=== PATIENT | male | born 1995 | race Caucasian/White ===

== ENCOUNTER 2025-05-26 23:58 | Observation (INO) | payer OTHER ==
[2025-05-27 03:22] LABS: Glucose, Urine (Dipstick) Normal (Negative); Leukocyte Negative (Negative); Protein, Urine (Dipstick) Negative (Neg-Trace); Specific Gravity, Urine 1.010 (1.005-1.030)
[2025-05-27 03:25] LABS: Bacteria/HPF Rare-Few HPF (None Seen); CAUTI Indications for Culture Pelvic or flank pain; Cocaine Metabolite Screen Negative (Negative); RBC/HPF None Seen HPF (0-3); THC/Cannabinoid Screen PRELIM POSITIVE (Negative); Tricyclic Screen PRELIM POSITIVE (Negative); Urine Culture Reflex No No; WBC/HPF None Seen HPF (0-3)
[2025-05-27 03:26] LABS: ALT (SGPT) 49 U/L (Less than 45); AST (SGOT) 63 U/L (11-34); Albumin Less than 0.3 g/dL (3.1-4.5); Alkaline Phosphatase 108 U/L (40-110); Anion Gap 17 mmol/L (10-20); BUN (Urea Nitrogen) 13 mg/dL (8.9-20.6); Bilirubin, Total 0.2 mg/dL (0.3-1.2); Calc. Creatinine Clearance 0 mL/min (70-130); Calcium 9.8 mg/dL (7.8-10.44); Carbon Dioxide 25 mmol/L (22-29); Chloride 97 mmol/L (98-107); Glucose 119 mg/dL (70-105); Potassium 3.5 mmol/L (3.5-5.1); Sodium 135 mmol/L (136-145)
[2025-05-27 03:27] LABS: Acetaminophen Less than 10 mcg/mL (Less than 10); Salicylate Less than 8.0 mg/dL (Less than 8.0)
[2025-05-27 03:32] LABS: #Basophils 0.02 10x3/uL (0.0-0.2); #Eosinophils 0.11 10x3/uL (0.0-0.5); #Monocytes 0.75 10x3/uL (0.0-1.1); #Neutrophils 4.12 10x3/uL (1.5-8.4); %Basophils 0.2 % (0.0-2.0); %Eosinophils 1.4 % (0.0-6.0); %Lymphocytes 38.3 % (18.0-47.0); %Monocytes 9.2 % (0.0-10.0); %Neutrophils 50.7 % (40.0-75.0); Hematocrit 38.7 % (38.8-50.0); Hemoglobin 12.6 g/dL (13.5-17.5); Mean Corpuscular Hemoglobin 23.4 pg (27.0-33.0); Mean Corpuscular Volume 71.9 fL (81.2-95.1); Platelet Count 271 10x3/uL (150-450); Red Blood Cell (RBC) Count 5.38 10x6/uL (4.32-5.72); White Blood Cell (WBC) Count 8.14 10x3/uL (3.5-10.5)
[2025-05-27 03:33] LABS: Anisocytosis SLIGHT = 6-15 cells (100X) (0-5/hpf); Microcytosis SLIGHT = 6-15 cells (100X) (0-5/hpf); Platelet Adequacy Comment Appears Adequate
[2025-05-27 03:44] LABS: Globulin 4.6 g/dL (2.4-3.5)
[2025-05-27] MEDS ORDERED: Acetaminophen 325 MG TAB PO PRN (09:08)
[2025-05-27] MEDS ORDERED: Senokot S 8.6-50 MG TAB PO PRN (09:08)
[2025-05-27] MEDS ORDERED: Electrolyte Replacement Protocol 1 EACH FS SCH (09:15)
[2025-05-27] MEDS ORDERED: Electrolyte Replacement Protocol 1 EACH FS PRN (09:15)
[2025-05-27] MEDS ORDERED: Folic Acid 1 MG TAB ONE (09:51)
[2025-05-27] MEDS: Folic Acid 1 MG TAB PO SCH (10:19)
[2025-05-27 10:41] LABS: Magnesium 2.2 mg/dL (1.6-2.6)
[2025-05-27 10:58] LABS: Syphilis Antibody Index 0.08 S/CO (<1.00 Non-Reactive)
[2025-05-27] MEDS: Ondansetron PF 4 MG/2 ML Vial IVP PRN (14:56)
[2025-05-27] MEDS: Melatonin 3 MG TAB PO PRN (21:07)
[2025-05-27] MEDS ORDERED: [UNRECOGNIZED DRUG - OTHER] SL SCH (22:00)
[2025-05-27] MEDS ORDERED: NALOXONE HCL SL SCH (22:00)
[2025-05-27] MEDS ORDERED: BUPRENORPHINE HCL SL SCH (22:00)
[2025-05-27] MEDS: Buprenorphine 8mg/Naloxone 2mg per 1 FILM SL SCH (22:34)
[2025-05-27] MEDS: QUEtiapine 100 MG TAB PO SCH (22:35)
[2025-05-28 03:03] VITALS: BMI 58.5
[2025-05-28 05:54] LABS: #Basophils 0.03 10x3/uL (0.0-0.2); #Eosinophils 0.15 10x3/uL (0.0-0.5); #Monocytes 0.76 10x3/uL (0.0-1.1); #Neutrophils 3.88 10x3/uL (1.5-8.4); %Basophils 0.4 % (0.0-2.0); %Eosinophils 1.8 % (0.0-6.0); %Lymphocytes 41.0 % (18.0-47.0); %Monocytes 9.3 % (0.0-10.0); %Neutrophils 47.4 % (40.0-75.0); Hematocrit 38.7 % (38.8-50.0); Hemoglobin 12.5 g/dL (13.5-17.5); Mean Corpuscular Hemoglobin 23.5 pg (27.0-33.0); Mean Corpuscular Volume 72.6 fL (81.2-95.1); Platelet Count 252 10x3/uL (150-450); Red Blood Cell (RBC) Count 5.33 10x6/uL (4.32-5.72); White Blood Cell (WBC) Count 8.19 10x3/uL (3.5-10.5)
[2025-05-28 06:05] LABS: Anion Gap 15 mmol/L (10-20); BUN (Urea Nitrogen) 11 mg/dL (8.9-20.6); Calc. Creatinine Clearance 270 mL/min (70-130); Calcium 9.2 mg/dL (7.8-10.44); Carbon Dioxide 26 mmol/L (22-29); Chloride 98 mmol/L (98-107); Glucose 113 mg/dL (70-105); Potassium 4.0 mmol/L (3.5-5.1); Sodium 135 mmol/L (136-145)
[2025-05-28 09:53] VITALS: TEMP 97.6
[2025-05-28] MEDS: Gabapentin 300 MG CAP PO SCH (10:29)
[2025-05-28] MEDS: clonazePAM 1 MG TAB PO SCH (10:29)
[2025-05-28] MEDS: Buprenorphine 8mg/Naloxone 2mg per 1 FILM SL SCH (10:30)
[2025-05-28] MEDS: Multivit, Therapeutic 1 TAB PO SCH (10:30)
[2025-05-28 13:06] VITALS: BP 136/82
[2025-05-28] MEDS ORDERED: QUEtiapine 100 MG TAB PO SCH (21:00)
[2025-05-30] MEDS ORDERED: Thiamine 100 MG TAB PO SCH (09:00)
== END 2025-05-28 17:35 | disposition short-term general hospital (02) ==
LOC: CSHERS 23:58 → CSHERHOLD 05-27 05:58 → CSHICU 05-27 12:25
PROVIDERS: ADMIT Internal Medicine; ATTEND Internal Medicine
DX: F20.9 Schizophrenia, unspecified (principal); F13.239 Sedative, hypnotic or anxiolytic dependence with withdrawal, unspecified; F11.20 Opioid dependence, uncomplicated; F31.9 Bipolar disorder, unspecified; E11.9 Type 2 diabetes mellitus without complications; F17.200 Nicotine dependence, unspecified, uncomplicated; Z79.899 Other long term (current) drug therapy
CPT/HCPCS: 36415; 36416; 80048; 80053; 80306; 80307; 81001; 83735; 84100; 84443; 85025; 86780; 93005; 94762; J0571; J2060; J2405; J3411; Q0162